=== PATIENT | male | born 1960 | race Caucasian/White ===

== ENCOUNTER 2019-04-04 10:52 | Emergency (ER) | payer BC, OTHER ==
[2019-04-04 11:03] VITALS: BP 158/100
--- NOTE | 2019-04-04 12:45 | UC ---
Throat Pain/Nasal Bran HPI - History of Current Complaint Chief Complaint: UCRespiratory Stated Complaint: bad cold for several days Pain Intensity: 0 - Allergies/Home Medications Allergies/Adverse Reactions: Allergies Allergy/AdvReac Type Severity Reaction Status Date / Time Penicillins Allergy Rash Verified 04/04/19 10:59 Home Medications: Home Medications Buspirone HCl 10 mg PO BID 04/04/19 [History Confirmed 04/04/19] PMH/Surg Hx/FS Hx/Imm Hx - Surgical History Surgical History: Yes Surgery Procedure, Year, and Place: LEFT ARM ANEURYSM, VASECTOMY, HERNIA REPAIR - Family History Known Family History: Positive: Cardiac Disease - Social History Alcohol Use: Occasionally Substance Use Type: Marijuana Smoking Status (MU): Former Smoker Physical Exam Vital Signs: Initial Vital Signs Temp 98.2 F 04/04/19 11:00 Pulse 66 04/04/19 11:00 Resp 16 04/04/19 11:00 BP 158/100 04/04/19 11:00 Pulse Ox 100 04/04/19 11:00 Discharge ED - Discharge Plan Referrals: Torsten Arroyo MD [Primary Care Provider] -
== END 2019-04-04 13:00 | disposition left against medical advice (07) ==
LOC: UCEAST 10:52
DX: Z53.21 Procedure and treatment not carried out due to patient leaving prior to being seen by health care provider (principal)

== ENCOUNTER 2021-05-06 08:14 | Inpatient (IN) ==
[2021-05-06] MEDS ORDERED: Al Hydrox/Mg Hydrox/Simet LIQ 30 ML UDC PO PRN (10:34)
[2021-05-06] MEDS: Fluticasone NASAL SPRAY 50MCG 16 gm SPRAY BTL INTRANASAL SCH (21:09)
[2021-05-07 08:39] LABS: ALT 30 U/L (7-52); AST 21 U/L (13-39); Albumin 4.3 g/dL (3.2-5.2); Albumin/Globulin Ratio 1.4 (1-3); Alkaline Phosphatase 80 U/L (35-149); Anion Gap 5 mmol/L (2-11); Blood Urea Nitrogen 15 mg/dL (6-24); C Reactive Protein < 1.00 mg/L (<8.01); CO2 Carbon Dioxide 31 mmol/L (22-32); Calcium 9.1 mg/dL (8.6-10.3); Chloride 101 mmol/L (101-111); Cholesterol 124 mg/dL; Glucose 103 mg/dL (70-100); HDL Cholesterol 50.5 mg/dL; LDL Cholesterol 57 mg/dL; Potassium 4.2 mmol/L (3.5-5.0); Sodium 137 mmol/L (135-145); Total Protein 7.3 g/dL (6.4-8.9); Triglycerides 81 mg/dL; eGFR CKD-EPI 92.2 (>60)
[2021-05-07 10:34] LABS: Vitamin B12 546 pg/mL (180-914)
[2021-05-07 12:26] LABS: Vitamin D Total 25(OH) 41.5 ng/mL (20-50)
[2021-05-07] MEDS ORDERED: Benzocaine/Menthol LOZ PO PRN (13:25)
[2021-05-07] MEDS: Fluticasone NASAL SPRAY 50MCG 16 gm SPRAY BTL INTRANASAL SCH (20:52)
[2021-05-08] MEDS: Fluticasone NASAL SPRAY 50MCG 16 gm SPRAY BTL INTRANASAL SCH (21:33)
[2021-05-09 07:35] VITALS: BP 117/63
== END 2021-05-09 12:00 | disposition home or self-care (01) | DRG 754 ==
LOC: ED 08:14 → EDHOLD 10:35 → BSU 12:00
PROVIDERS: ADMIT Psychiatry & Neurology Psychiatry; ATTEND Psychiatry & Neurology Psychiatry